=== PATIENT | female | born 1960 | race Caucasian/White ===

== ENCOUNTER 2018-09-30 08:57 | Day surgery (SDC) | payer BC ==
[~2018-09-30 08:57] MED LIST: Bupivacaine 0.25%/EPINEPHrine 1:200,000 10 ML SDV INJECT ONE; Bupivacaine 0.25%/EPINEPHrine 1:200,000 10 ML SDV ONE; Clindamycin Phosphate in D5W 600 MG in Premix Bag 1 BAG IV ONE; Lactated Ringers 1,000 ML IV SCH; Lidocaine 2% 5 ML SDV ONE; Midazolam 1 MG/ML 2 ML SDV ONE; Propofol 200 MG/20 ML SDV ONE; fentaNYL 100 MCG/2 ML SDV ONE
--- NOTE | 2018-09-30 10:16 | PCM.PREANE ---
Preanesthetic Assessment - Procedure Proposed Procedure: Excision of Synovial Cyst of LEFT Ring finger DIP - Anesthesia/Transfusion/Family Hx Anesthesia History: Prior Anesthesia Without Reaction Family History of Anesthesia Reaction: No Transfusion History: No Prior Transfusion(s) - Review of Systems General: No Symptoms Pulmonary: No Symptoms Cardiovascular: No Symptoms Gastrointestinal: No Symptoms Neurological: No Symptoms Other: Reports: None - Physical Assessment NPO Status Date: 09/29/18 NPO Status Time: 00:00 O2 Sat by Pulse Oximetry: 96 Respiratory Rate: 16 Vital Signs: Last Vital Signs Temp 36.5 C 09/30/18 09:35 Pulse 73 09/30/18 09:35 Resp 16 09/30/18 09:35 BP 127/66 09/30/18 09:35 Pulse Ox 96 09/30/18 09:35 Height: 1.63 m Weight: 94.347 kg ASA Class: 2 Mental Status: Alert & Oriented x3 Airway Class: Mallampati = 2 Dentition: Reports: Normal Dentition Thyro-Mental Finger Breadths: 3 Mouth Opening Finger Breadths: 3 ROM/Head Extension: Full Lungs: Clear to Auscultation, Normal Respiratory Effort Cardiovascular: Regular Rate, Regular Rhythm, No Murmurs (Pt reports intermittent murmur in the past) - Allergies Allergies/Adverse Reactions: Allergies Allergy/AdvReac Type Severity Reaction Status Date / Time amoxicillin [From Augmentin] Allergy Rash Verified 09/26/18 14:01 cephalexin monohydrate Allergy Rash Verified 09/26/18 14:01 [From Keflex] clavulanic acid Allergy Rash Verified 09/26/18 14:01 [From Augmentin] estrogens, conjugated Allergy Rash Verified 09/26/18 14:01 [From Premarin] Milk Containing Products Allergy Rash Verified 09/26/18 14:01 wheat germ oil Allergy Rash Uncoded 09/26/18 14:01 - Blood Blood Available: No - Acknowledgements Anesthesia Type Planned: MAC Pt an Appropriate Candidate for the Planned Anesthesia: Yes Alternatives and Risks of Anesthesia Discussed w Pt/Guardian: Yes Pt/Guardian Understands and Agrees with Anesthesia Plan: Yes PreAnesthesia Questionnaire HEENT History: Reports: Allergic Rhinitis, Other (See Below) Other HEENT History: wears glasses Cardiovascular History: Reports: Heart Murmur Respiratory History: Reports: Asthma Other Respiratory History: allergy induced asthma Gastrointestinal History: Reports: GERD Genitourinary History: Reports: None WEBBING TACKER History: Reports: Musculoskeletal History: Reports: Fracture, Osteoarthritis Other Musculoskeletal History: hx fx wrist Neurological History: Reports: Migraines, Other (See Below) Other Neuro History: hormone related migraines Psychiatric History: Reports: Anxiety, Depression Endocrine/Metabolic History: Reports: Diabetes, Type II, Obesity/BMI 30+ Hematologic History: Reports: None Immunologic History: Reports: None Oncologic (Cancer) History: Reports: None Dermatologic History: Reports: None - Past Surgical History Head Surgeries/Procedures: Reports: None HEENT Surgical History: Reports: Tonsillectomy Cardiovascular Surgical History: Reports: None GI Surgical History: Reports: Appendectomy, Cholecystectomy Female Surgical History: Reports: Breast Biopsy, Hysterectomy, Other (See Below) Other Female Surgeries/Procedures: vaginal surgery for prolapse Endocrine Surgical History: Reports: None Neurological Surgical History: Reports: Lumbar Spine Other Neurological Surgeries/Procedures: hx back surgery x3 Musculoskeletal Surgical History: Reports: Knee Replacement Other Musculoskeletal Surgeries/Procedures:: danish knee replacement, surgery to big toe-rt foot Oncologic Surgical History: Reports: Biopsy of Breast Dermatological Surgical History: Reports: None - SUBSTANCE USE Smoking Status *Q: Never Smoker Recreational Drug Use History: No - HOME MEDS Home Medications: Home Meds Calcium Carb/D3/Magnesium/Zinc [[place]-Dfs-Bbdg-Vit D] 1 tab PO DAILY 09/26/18 [History] Canagliflozin/Metformin HCl [Invokamet 150-500 mg Tablet] 1 tab PO DAILY [History] Cholecalciferol (Vitamin D3) [Vitamin D3] 3,000 units PO DAILY 09/26/18 [History ] Cyanocobalamin (Vitamin B12) [Vitamin B12] 1,000 mcg PO DAILY 09/26/18 [History] Docusate Sodium [Colace] 100 mg PO DAILY 09/26/18 [History] Famotidine 20 mg PO DAILY 09/26/18 [History] Venlafaxine HCl [Venlafaxine HCl ER] 225 mg PO DAILY 09/26/18 [History] clonazePAM [Klonopin] 1 mg PO DAILY 09/26/18 [History] - CURRENT (IN HOUSE) MEDS Current Meds: Current Medications Lactated Ringer's (Ringers, Lactated) 1,000 mls @ 125 mls/hr IV ASDIRECTED MONIKA Last Admin: 09/30/18 09:54 Dose: 125 mls/hr Discontinued Medications Bupivacaine HCl/Epinephrine Bitart (Marcaine 0.25%/Epinephrine 1:200,000) 10 ml INJECT ONETIME ONE Stop: 09/30/18 08:01 Bupivacaine HCl/Epinephrine Bitart (Marcaine 0.25%/Epinephrine 1:200,000) Confirm Administered Dose 10 ml .ROUTE .STK-MED ONE Stop: 09/30/18 07:35 Fentanyl (Sublimaze) Confirm Administered Dose 100 mcg .ROUTE .STK-MED ONE Stop: 09/30/18 08:40 Clindamycin Phosphate 600 mg/ (Premix) 50 mls @ 150 mls/hr IV ONETIME ONE Stop: 09/30/18 08:19 Last Admin: 09/30/18 09:55 Dose: 150 mls/hr Lidocaine (Xylocaine-Mpf 2%) Confirm Administered Dose 5 ml .ROUTE .STK-MED ONE Stop: 09/30/18 08:40 Midazolam HCl (Versed 1 Mg/Ml) Confirm Administered Dose 2 mg .ROUTE .STK-MED ONE Stop: 09/30/18 08:40 Propofol (Diprivan 20 Ml) Confirm Administered Dose 200 mg .ROUTE .STK-MED ONE Stop: 09/30/18 08:40
[2018-09-30] MEDS ORDERED: Ondansetron 4 MG/2 ML SDV ONE (10:51)
--- NOTE | 2018-09-30 11:54 | PCM.POSTAN ---
POST ANESTHESIA ASSESSMENT - MENTAL STATUS Mental Status: Alert, Oriented - RESPIRATORY Respiratory Status: Respiratory Rate WNL, Airway Patent, O2 Saturation Stable - CARDIOVASCULAR CV Status: Pulse Rate WNL, Blood Pressure Stable - GASTROINTESTINAL GI Status: No Symptoms - POST OP HYDRATION Hydration Status: Adequate & Stable
--- NOTE | 2018-09-30 11:54 | PCM48HPAN ---
Post Anesthesia Note - EVALUATION WITHIN 48HRS OF ANESTHETIC Vital Signs in Normal Range: Yes Patient Participated in Evaluation: Yes Respiratory Function Stable: Yes Airway Patent: Yes Cardiovascular Function Stable: Yes Hydration Status Stable: Yes Pain Control Satisfactory: Yes Nausea and Vomiting Control Satisfactory: Yes Mental Status Recovered: Yes Resp Rate: 16
--- NOTE | 2018-09-30 15:46 | PCM.OPNOTE ---
- General Post-Op/Procedure Note Date of Surgery/Procedure: 09/30/18 Operative Procedure(s): 1. excision of left ring finger ganglion. 2. destruction of refractory wart left index finger Pre Op Diagnosis: left ring finger dip joint ganglion and left index finger refractory wart Post-Op Diagnosis: Same Anesthesia Technique: Local, MAC Primary Surgeon: Glenys Valles Biological Technician: Renu Buck Complications: None Condition: Good
--- NOTE | 2018-10-02 14:27 | OR ---
SURGEON: FRANCIS TAYLOR MD DATE OF PROCEDURE: 09/30/2018 PREOPERATIVE DIAGNOSES: 1. Left ring finger distal interphalangeal joint ganglion. 2. Left index finger refractory wart. FEED MILL OPERATOR: EPIFANIO Jones. REASON FOR AND ROLE OF FEED MILL OPERATOR: Retraction, prepping, draping, positioning and closure assistance. ANESTHESIA: Local MAC. PROCEDURED: 1. Excision of left ring finger ganglion. 2. Destruction of the refractory wart, left index finger. INDICATIONS: Ms. Issa is a 58-year-old female seen today in evaluation for her left ring finger ganglion. She also had attempted destruction of a wart to the left index finger, which has not resulted in resolution. We discussed cauterization and closure today. She would like to proceed. PROCEDURE IN DETAIL: After informed consent was obtained and placed on the chart, the patient was brought to the operating theater and laid in the supine position. After MAC anesthesia was obtained, the area was prepped and draped in the normal fashion and a time-out was completed to confirm side and site. 0.25% Marcaine with epinephrine was injected into the area. Once adequately anesthetized, attention was then paid to excision of the left ring finger ganglion. An H-type incision was made involving the ganglion and skin with an ellipse. Dissection was carried circumferentially around the ganglion itself and then through the extensor tendon to trace the ganglion back to the joint. Once located, the joint communication was removed and the joint surface was rongeured to remove the joint mouse and significant osteoarthritis here. Once adequately rongeured, the area was irrigated and reapproximated with a single stitch in the extensor tendon that was split and the skin was then reapproximated, trimmed to fit, and closed using a 5-0 chromic stitch in an interrupted fashion. It was dressed with a Band-Aid. Once adequately treated, attention was then paid to the refractory wart of the left index finger, which was excised with a 15 blade and cauterized. Once completed, a single 5-0 chromic stitch was used to close the 0.4 cm wound on the left index finger. Once adequately closed, it was dressed with a Band-Aid as well. The patient tolerated this well and all counts and needles were correct at the end of the case. FOLLOWUP INSTRUCTIONS: The patient will see us in approximately 2 weeks, sooner with any problems, questions, or concerns. Wound care instructions provided. She was given some pain pills that she needed for the ring finger. HEGGTHE / CISCO /[id number]
== END 2018-09-30 12:00 | disposition home or self-care (01) ==
LOC: MW.SDS 08:57
PROVIDERS: ATTEND Plastic Surgery
DX: M67.442 Ganglion, left hand (principal); E11.9 Type 2 diabetes mellitus without complications; F41.9 Anxiety disorder, unspecified; F32.9 Major depressive disorder, single episode, unspecified; M19.90 Unspecified osteoarthritis, unspecified site; Z91.011 Allergy to milk products; Z88.0 Allergy status to penicillin; Z88.8 Allergy status to other drugs, medicaments and biological substances; Z91.02 Food additives allergy status; Z79.84 Long term (current) use of oral hypoglycemic drugs; Z79.899 Other long term (current) drug therapy
CPT/HCPCS: 17110; 26160; 88304; J0131; J2001; J2250; J2405; J2704; J3010; J3490; J7120; 00400

== ENCOUNTER 2020-07-19 13:33 | Observation (INO) | payer BC ==
--- NOTE | 2020-07-19 14:26 | EDM.PDOC ---
ED HPI GENERAL MEDICAL PROBLEM - General Chief Complaint: Head Injury Stated Complaint: FELL AND HIT HEAD DIZZY Time Seen by Provider: 07/19/20 13:55 Source of Information: Reports: Patient History Limitations: Reports: No Limitations - History of Present Illness INITIAL COMMENTS - FREE TEXT/NARRATIVE: HISTORY AND PHYSICAL: History of present illness: Patient is a 60-year-old female who presents to the emergency room with complaints of posterior scalp pain after a fall. She states she was getting out of the car and started sliding on the ice when she fell backwards striking her head on the cement ground. She denies any loss of consciousness although she has been dizzy, nauseated and headache over the past 2 hours. She denies any neck, back or extremity pain. Patient denies any fever, chills or change in vision. Denies any numbness, tingling, paresthesia, urinary or fecal incontinence. Denies any chest pain, back pain, shortness of breath or cough. Denies any abdominal pain, vomiting, diarrhea, constipation or dysuria. No concern for . Has not noted any blood in urine or stool. Patient has been eating and drinking appropriately. Review of systems: As per history of present illness and below otherwise all systems reviewed and negative. Past medical history: As per history of present illness and as reviewed below otherwise noncontributory. Surgical history: As per history of present illness and as reviewed below otherwise noncontributory. Social history: See social history for further information Family history: As per history of present illness and as reviewed below otherwise noncontributory. Physical exam: General: Well developed and well nourished. Alert and orientated x 3. Nontoxic in appearance and in no acute distress. Vital signs are stable and have been reviewed by me. Nursing notes were reviewed. HEENT: Mild tenderness to the occiput/posterior scalp, no crepitus. No obvious injury is noted, normocephalic, pupils equal and reactive bilaterally, negative for conjunctival pallor or scleral icterus, mucous membranes moist, TMs normal bilaterally, throat clear, neck supple, nontender, trachea midline. No drooling or trismus noted. No meningeal signs. No hot potato voice noted. Lungs: Clear to auscultation bilaterally. No wheezes, rales, or rhonchi. Chest nontender. Normal work of breathing, no accessory muscles used. Heart: S1S2, regular rate and rhythm without overt murmur, gallops, or rubs. No JVD. No peripheral edema Abdomen: Soft, nondistended, nontender. Normoactive bowel sounds. Negative for masses or costovertebral tenderness. Pelvis: Stable nontender. Genitourinary/Rectal: Deferred. C-spine/Back: No pinpoint vertebral tenderness upon palpation. No crepitus, step-offs or obvious deformities. Patient is ambulatory into the emergency room without difficulty or deficit. Able to rock back on heels and walk on toes. Denies any urinary or fecal incontinence. Denies any numbness, tingling or sadd le paresthesia. No concerns of serious infection, fracture or cord compression, or cauda equina syndrome. Deep tendon reflexes brisk bilaterally. Skin: Intact, warm, dry. No lesions or rashes noted. Hematologic: No petechiae or purpra. Mucosa appropriate color and normal nail bed color and refill. Extremities: Atraumatic, moves all extremities per self without difficulty or deficits, negative for cords or calf pain. Neurovascular unremarkable. Neuro: Awake, alert, oriented. Cranial nerves II through XII unremarkable. Cerebellum unremarkable. Motor and sensory unremarkable throughout. Exam nonf ocal. Psychiatric: Mood and affect are appropriate. Normal thought process. Answering questions appropriately. Notes: *This patient was seen and evaluated during the 2019 SARS-CoV-2 novel coronaviru s pandemic period. Community viral transmission is ongoing at time of this encounter and the emergency department is operating under pandemic response procedures. GCS: 15. We discussed risks versus benefits of a head CT, she would like to proceed with the head CT. CT shows a thin asymmetric hyperdensity along the right tentorium compared to left may represent a tiny subdural hematoma. No surrounding mass effect. No acute infarct. No intracranial hemorrhage elsewhere. No midline shift. Basilar cisterns are patent. Normal brain parenchymal morphology. I called the neurosurgeon at [facility] in [place], Dr Carpenter, who recommends that this patient stay for observation and no further intervention is needed as long as her blood pressure remained stable and she is still neurologically intact. Patient was made aware of her CT findings and she is agreeable to staying for observation. Dr Wilson is here to see patient. Will admit for observation for further care and imaging. Diagnostics: Head CT Therapeutics: Leobardo Impression: Subdural hematoma Plan: Observation admission to Med/Surg Definitive disposition and diagnosis as appropriate pending reevaluation and review of above. headache Pain Score (Numeric/FACES): 7 - Related Data Allergies Allergy/AdvReac Type Severity Reaction Status Date / Time amoxicillin [From Augmentin] Allergy Rash Verified 07/19/20 14:18 cephalexin monohydrate Allergy Rash Verified 07/19/20 14:18 [From Keflex] clavulanic acid Allergy Rash Verified 07/19/20 14:18 [From Augmentin] estrogens, conjugated Allergy Rash Verified 07/19/20 14:18 [From Premarin] Milk Containing Products Allergy Rash Verified 07/19/20 14:18 wheat germ oil Allergy Rash Uncoded 07/19/20 14:18 Home Meds: Home Meds Calcium Carb/D3/Magnesium/Zinc [Enkfsgx-Bij-Dffo-Vit D] 1 tab PO DAILY 09/26/18 [History] Modafinil [Provigil] 100 mg PO DAILY 07/19/20 [History] Multivitamin 1 tab PO DAILY 07/19/20 [History] [place]-3 Fatty Acids [[place]-3] 1 tab PO DAILY 07/19/20 [History] Vortioxetine Hydrobromide [Trintellix] 20 mg PO DAILY 07/19/20 [History] Past Medical History HEENT History: Reports: Allergic Rhinitis, Other (See Below) Other HEENT History: wears glasses Cardiovascular History: Reports: Heart Murmur Respiratory History: Reports: Asthma Other Respiratory History: allergy induced asthma Gastrointestinal History: Reports: GERD Genitourinary History: Reports: None HYDROTHERAPIST History: Reports: Musculoskeletal History: Reports: Fracture, Osteoarthritis Other Musculoskeletal History: hx fx wrist Neurological History: Reports: Migraines, Other (See Below) Other Neuro History: hormone related migraines Psychiatric History: Reports: Anxiety, Depression Endocrine/Metabolic History: Reports: Diabetes, Type II, Obesity/BMI 30+ Hematologic History: Reports: None Immunologic History: Reports: None Oncologic (Cancer) History: Reports: None Dermatologic History: Reports: None - Past Surgical History Head Surgeries/Procedures: Reports: None HEENT Surgical History: Reports: Tonsillectomy Cardiovascular Surgical History: Reports: None GI Surgical History: Reports: Appendectomy, Cholecystectomy Female Surgical History: Reports: Breast Biopsy, Hysterectomy, Other (See Below) Other Female Surgeries/Procedures: vaginal surgery for prolapse Endocrine Surgical History: Reports: None Neurological Surgical History: Reports: Lumbar Spine Other Neurological Surgeries/Procedures: hx back surgery x3 Musculoskeletal Surgical History: Reports: Knee Replacement Other Musculoskeletal Surgeries/Procedures:: danish knee replacement, surgery to big toe-rt foot Oncologic Surgical History: Reports: Biopsy of Breast Dermatological Surgical History: Reports: None ED ROS GENERAL - Review of Systems Review Of Systems: Comprehensive ROS is negative, except as noted in HPI. ED EXAM, HEAD INJURY - Physical Exam Exam: See Below (See dictation) Course - Vital Signs Last Recorded V/S: Last Vital Signs Temp 97.6 F 07/19/20 14:15 Pulse 86 07/19/20 15:30 Resp 18 07/19/20 15:30 BP 115/78 07/19/20 15:30 Pulse Ox 95 07/19/20 15:30 - Orders/Labs/Meds Orders: Active Orders 24 hr Category Date Time Status Patient Status [ADT] Routine ADT 07/19/20 16:07 Active Intake and Output [RC] QSHIFT Care 07/19/20 16:07 Active Oxygen Therapy [RC] PRN Care 07/19/20 16:07 Active RT Incentive Spirometry [RC] Q1HWA Care 07/19/20 16:07 Active Up ad Hawa [RC] ASDIRECTED Care 07/19/20 16:07 Active Vital Signs [RC] PER UNIT ROUTINE Care 07/19/20 16:07 Active Regular Diet [DIET] Diet 07/19/20 Dinner Active COMPREHENSIVE METABOLIC PN,CMP [CHEM] Stat Lab 07/19/20 15:50 Received CORONAVIRUS COVID-19 JUNG [MOLEC] Routine Lab 07/19/20 15:58 Received Acetaminophen [TylenoL] Med 07/19/20 16:07 Active 650 mg PO Q6H PRN Ketorolac [Toradol] Med 07/19/20 16:15 Active 15 mg IVPUSH Q6H Ondansetron [Zofran] Med 07/19/20 16:07 Active 4 mg IVPUSH Q6H PRN Sodium Chloride 0.9% [Normal Saline] Med 07/19/20 16:07 Active 10 ml IV ASDIRECTED PRN Sodium Chloride 0.9% [Normal Saline] 1,000 ml Med 07/19/20 16:15 Active IV ASDIRECTED Sodium Chloride 0.9% [Saline Flush] Med 07/19/20 15:35 Active 10 ml FLUSH ASDIRECTED PRN Sodium Chloride 0.9% [Saline Flush] Med 07/19/20 16:07 Active 10 ml FLUSH ASDIRECTED PRN Sodium Chloride 0.9% [Saline Flush] Med 07/19/20 15:35 Active 2.5 ml FLUSH ASDIRECTED PRN Sodium Chloride 0.9% [Saline Flush] Med 07/19/20 16:07 Active 2.5 ml FLUSH ASDIRECTED PRN diphenhydrAMINE [Benadryl] Med 07/19/20 16:07 Active 25 mg PO Q4H PRN Peripheral IV Insertion Adult [OM.PC] Urgent Oth 07/19/20 16:07 Ordered Saline Lock Insert [OM.PC] Stat Ot 07/19/20 15:35 Ordered Resuscitation Status Routine Resus Stat 07/19/20 16:07 Ordered Medication Orders Acetaminophen (Tylenol) 650 mg PO Q6H PRN PRN Reason: Pain (mild 1-3) Diphenhydramine HCl (Benadryl) 25 mg PO Q4H PRN PRN Reason: Itching Sodium Chloride (Normal Saline) 1,000 mls @ 100 mls/hr IV ASDIRECTED [facility] Last Admin: 07/19/20 16:18 Dose: 100 mls/hr Documented by: DENVER Ketorolac Tromethamine (Toradol) 15 mg IVPUSH Q6H [facility] Stop: 07/20/20 10:16 Last Admin: 07/19/20 16:20 Dose: 15 mg Documented by: DENVER Ondansetron HCl (Zofran) 4 mg IVPUSH Q6H PRN PRN Reason: Nausea/Vomiting Sodium Chloride (Saline Flush) 10 ml FLUSH ASDIRECTED PRN PRN Reason: Keep Vein Open Last Admin: 07/19/20 15:51 Dose: 10 ml Documented by: DENVER Sodium Chloride (Saline Flush) 2.5 ml FLUSH ASDIRECTED PRN PRN Reason: Keep Vein Open Last Admin: 07/19/20 15:51 Dose: 2.5 ml Documented by: DENVER Sodium Chloride (Saline Flush) 10 ml FLUSH ASDIRECTED PRN PRN Reason: Keep Vein Open Sodium Chloride (Saline Flush) 2.5 ml FLUSH ASDIRECTED PRN PRN Reason: Keep Vein Open Sodium Chloride (Normal Saline) 10 ml IV ASDIRECTED PRN PRN Reason: IV Use Labs: Laboratory Tests 07/19/20 07/19/20 Range/Units 15:45 15:50 WBC 8.16 (4.0-11.0) K/uL RBC 5.09 (4.30-5.90) M/uL Hgb 15.0 (12.0-16.0) g/dL Hct 46.5 H (36.0-46.0) % MCV 91.4 (80.0-98.0) fL MCH 29.5 (27.0-32.0) pg MCHC 32.3 (31.0-37.0) g/dL RDW Std Deviation 47.7 (28.0-62.0) fl RDW Coeff of Rupal 14 (11.0-15.0) % Plt Count 257 (150-400) K/uL MPV 11.80 (7.40-12.00) fL Neut % (Auto) 52.6 (48.0-80.0) % Lymph % (Auto) 34.6 (16.0-40.0) % Morris % (Auto) 10.3 (0.0-15.0) % Eos % (Auto) 2.3 (0.0-7.0) % Baso % (Auto) 0.2 (0.0-1.5) % Neut # (Auto) 4.3 (1.4-5.7) K/uL Lymph # (Auto) 2.8 H (0.6-2.4) K/uL Morris # (Auto) 0.8 (0.0-0.8) K/uL Eos # (Auto) 0.2 (0.0-0.7) K/uL Baso # (Auto) 0.0 (0.0-0.1) K/uL Nucleated RBC % 0.0 /100WBC Nucleated RBCs # 0 K/uL Urine Color YELLOW Urine Appearance CLEAR Urine pH 5.5 (5.0-8.0) Ur Specific [place] >= 1.030 (1.001-1.035) Urine Protein NEGATIVE (NEGATIVE) mg/dL Urine Glucose (UA) 100 H (NEGATIVE) mg/dL Urine Ketones TRACE H (NEGATIVE) mg/dL Urine Occult Blood NEGATIVE (NEGATIVE) Urine Nitrite NEGATIVE (NEGATIVE) Urine Bilirubin NEGATIVE (NEGATIVE) Urine Urobilinogen 0.2 (<2.0) EU/dL Ur Leukocyte Esterase NEGATIVE (NEGATIVE) Meds: Medications Generic Name Dose Route Start Last Admin Trade Name Laloq PRN Reason Stop Dose Admin Acetaminophen 650 mg 07/19/20 16:07 Tylenol PO Q6H PRN Pain (mild 1-3) Diphenhydramine HCl 25 mg 07/19/20 16:07 Benadryl PO Q4H PRN Itching Sodium Chloride 1,000 mls @ 100 mls/hr 07/19/20 16:15 07/19/20 16:18 Normal Saline IV 100 mls/hr ASDIRECTED MONIKA Administration Ketorolac Tromethamine 15 mg 07/19/20 16:15 07/19/20 16:20 Toradol IVPUSH 07/20/20 10:16 15 mg Q6H MONIKA Administration Ondansetron HCl 4 mg 07/19/20 16:07 Zofran IVPUSH Q6H PRN Nausea/Vomiting Sodium Chloride 10 ml 07/19/20 15:35 07/19/20 15:51 Saline Flush FLUSH 10 ml ASDIRECTED PRN Administration Keep Vein Open Sodium Chloride 2.5 ml 07/19/20 15:35 07/19/20 15:51 Saline Flush FLUSH 2.5 ml ASDIRECTED PRN Administration Keep Vein Open Sodium Chloride 10 ml 07/19/20 16:07 Saline Flush FLUSH ASDIRECTED PRN Keep Vein Open Sodium Chloride 2.5 ml 07/19/20 16:07 Saline Flush FLUSH ASDIRECTED PRN Keep Vein Open Sodium Chloride 10 ml 07/19/20 16:07 Normal Saline IV ASDIRECTED PRN IV Use Discontinued Medications Generic Name Dose Route Start Last Admin Trade Name Freq PRN Reason Stop Dose Admin Ondansetron HCl 4 mg 07/19/20 14:30 Zofran IVPUSH 07/19/20 14:31 ONETIME ONE Ondansetron HCl 4 mg 07/19/20 14:30 07/19/20 14:49 Zofran Odt PO 07/19/20 14:31 4 mg ONETIME ONE Administration Departure - Departure Time of Disposition: 15:42 Disposition: Refer to Observation Clinical Impression: Subdural hematoma - Discharge Information Referrals: Micah Drake NP [Primary Care Provider] - Forms: ED Department Discharge Sepsis Event Note (ED) - Focused Exam Vital Signs: Vital Signs Temp Pulse Resp BP Pulse Ox 07/19/20 15:30 86 18 115/78 95 07/19/20 14:15 97.6 F 83 16 179/75 H 97 - My Orders Last 24 Hours: My Active Orders 07/19/20 15:35 Sodium Chloride 0.9% [Saline Flush] 10 ml FLUSH ASDIRECTED PRN Sodium Chloride 0.9% [Saline Flush] 2.5 ml FLUSH ASDIRECTED PRN Saline Lock Insert [OM.PC] Stat 07/19/20 15:50 COMPREHENSIVE METABOLIC PN,CMP [CHEM] Stat 07/19/20 15:58 CORONAVIRUS COVID-19 JUNG [MOLEC] Routine - Assessment/Plan Last 24 Hours: My Active Orders 07/19/20 15:35 Sodium Chloride 0.9% [Saline Flush] 10 ml FLUSH ASDIRECTED PRN Sodium Chloride 0.9% [Saline Flush] 2.5 ml FLUSH ASDIRECTED PRN Saline Lock Insert [OM.PC] Stat 07/19/20 15:50 COMPREHENSIVE METABOLIC PN,CMP [CHEM] Stat 07/19/20 15:58 CORONAVIRUS COVID-19 JUNG [MOLEC] Routine
[2020-07-19] MEDS ORDERED: Ondansetron 4 MG Tab.DIS PO ONE (14:30)
[2020-07-19] MEDS ORDERED: Ondansetron 4 MG/2 ML SDV IVPUSH ONE (14:30)
--- NOTE | 2020-07-19 15:16 | CT ---
INDICATION: Head pain. Dizziness. Falls. COMPARISON: None. TECHNIQUE: Noncontrast CT head. FINDINGS: Normal brain parenchymal morphology. Thin asymmetric hyperdensity along the right tentorium compared to the left measuring less than 2 millimeters in thickness (axial image 14; coronal image 67) may represent a small subdural hematoma. No intracranial hemorrhage elsewhere. No acute infarct. No focal edema. No mass effect. No midline shift. No abnormal ventricular dilatation. Normal calvarium and skull base. Visualized paranasal sinuses and mastoid air cells are clear. Visualized orbits are unremarkable. IMPRESSION: 1. Thin asymmetric hyperdensity along the right tentorium compared to left may represent a tiny subdural hematoma. No surrounding mass effect 2. No acute infarct. No intracranial hemorrhage elsewhere. 3. No midline shift. Basilar cisterns are patent. 4. Normal brain parenchymal morphology. Please note that all CT scans at this facility use dose modulation, iterative reconstruction, and/or weight-based dosing when appropriate to reduce radiation dose to as low as reasonably achievable. Dictated by Catrachito Guthrie MD @ Jul 19 2020 3:11PM Signed by Dr. Catrachito Guthrie @ Jul 19 2020 3:14PM
[2020-07-19] MEDS ORDERED: Sodium Chloride 0.9% 10 ML Syringe FLUSH PRN ×2 (15:35→16:07)
[2020-07-19] MEDS ORDERED: Sodium Chloride 0.9% 2.5 ML Syringe FLUSH PRN ×2 (15:35→16:07)
[2020-07-19] MEDS ORDERED: Acetaminophen 325 MG Tab PO PRN (16:07)
[2020-07-19] MEDS ORDERED: Sodium Chloride 0.9% 10 ML SDV IV PRN (16:07)
[2020-07-19] MEDS ORDERED: Ondansetron 4 MG/2 ML SDV IVPUSH PRN (16:07)
[2020-07-19] MEDS ORDERED: diphenhydrAMINE 25 MG Cap PO PRN (16:07)
--- NOTE | 2020-07-19 16:10 | PCM.HP.2 ---
H&P History of Present Illness - General Date of Service: 07/19/20 Admit Problem/Dx: Admission Diagnosis/Problem Admission Diagnosis/Problem Subdural hematoma Source of Information: Patient History Limitations: Reports: No Limitations - History of Present Illness Initial Comments - Free Text/Narative: Patient is a 60 year old female who presents to the ER after a fall this afternoon. She was walking on ice when she slipped and fell backwards. She struck the back of her head on the ice. She did not loose conciousness but felt "dazed." Afterwards she felt sluggish and nauseated. She decided to come to the ER for evaluation. She denies any pain anywhere but the back of her head in the midline where she hit down. She denies any cuts or lacerations. She denies any vision changes, loss of motor function, or paresthesias. She is alert and oriented x 4. She denies any SOB, chest pain, or vomiting. She was given zofran in the ER with good resolution of her nausea. Her vitals were stable on arrival. Her labs were normal. CT head showed a questionable thin asymmetric density on the right tentorium. There was a question of a subdural. The ER consulted an OSH neurosurgeon who agreed that the patient should be monitored overnight. She has had no change in neurologic status since admission. headache Pain Score (Numeric/FACES): 7 - Related Data Allergies/Adverse Reactions: Allergies Allergy/AdvReac Type Severity Reaction Status Date / Time amoxicillin [From Augmentin] Allergy Rash Verified 07/19/20 14:18 cephalexin monohydrate Allergy Rash Verified 07/19/20 14:18 [From Keflex] clavulanic acid Allergy Rash Verified 07/19/20 14:18 [From Augmentin] estrogens, conjugated Allergy Rash Verified 07/19/20 14:18 [From Premarin] Milk Containing Products Allergy Rash Verified 07/19/20 14:18 wheat germ oil Allergy Rash Uncoded 07/19/20 14:18 Home Medications: Home Meds Calcium Carb/D3/Magnesium/Zinc [Wywmzyn-Efi-Vpiz-Vit D] 1 tab PO DAILY 09/26/18 [History] Modafinil [Provigil] 100 mg PO DAILY 07/19/20 [History] Multivitamin 1 tab PO DAILY 07/19/20 [History] Steedman-3 Fatty Acids [Steedman-3] 1 tab PO DAILY 07/19/20 [History] Vortioxetine Hydrobromide [Trintellix] 20 mg PO DAILY 07/19/20 [History] Past Medical History HEENT History: Reports: Allergic Rhinitis, Other (See Below) Other HEENT History: wears glasses Cardiovascular History: Reports: Heart Murmur Respiratory History: Reports: Asthma Other Respiratory History: allergy induced asthma Gastrointestinal History: Reports: GERD Genitourinary History: Reports: None 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: Musculoskeletal History: Reports: Fracture, Osteoarthritis Other Musculoskeletal History: hx fx wrist Neurological History: Reports: Migraines, Other (See Below) Other Neuro History: hormone related migraines Psychiatric History: Reports: Anxiety, Depression Endocrine/Metabolic History: Reports: Diabetes, Type II, Obesity/BMI 30+ Hematologic History: Reports: None Immunologic History: Reports: None Oncologic (Cancer) History: Reports: None Dermatologic History: Reports: None - Infectious Disease History Infectious Disease History: Reports: Chicken Pox, Measles - Past Surgical History Head Surgeries/Procedures: Reports: None HEENT Surgical History: Reports: Tonsillectomy Cardiovascular Surgical History: Reports: None GI Surgical History: Reports: Appendectomy, Cholecystectomy Female Surgical History: Reports: Breast Biopsy, Hysterectomy, Other (See Below) Other Female Surgeries/Procedures: vaginal surgery for prolapse Endocrine Surgical History: Reports: None Neurological Surgical History: Reports: Lumbar Spine Other Neurological Surgeries/Procedures: hx back surgery x3 Musculoskeletal Surgical History: Reports: Knee Replacement Other Musculoskeletal Surgeries/Procedures:: danish knee replacement, surgery to big toe-rt foot Oncologic Surgical History: Reports: Biopsy of Breast Dermatological Surgical History: Reports: None Social & Family History - Family History Family Medical History: No Pertinent Family History - Tobacco Use Tobacco Use Status *Q: Never Tobacco User - Recreational Drug Use Recreational Drug Use: No H&P Review of Systems - Review of Systems: Review Of Systems: See Below General: Reports: No Symptoms HEENT: Reports: Other (pain at point of impact on occiput) Pulmonary: Reports: No Symptoms Cardiovascular: Reports: No Symptoms Gastrointestinal: Reports: No Symptoms Genitourinary: Reports: No Symptoms Musculoskeletal: Reports: No Symptoms Skin: Reports: No Symptoms Psychiatric: Reports: No Symptoms Neurological: Reports: No Symptoms Hematologic/Lymphatic: Reports: No Symptoms Immunologic: Reports: No Symptoms Exam - Exam Exam: See Below - Vital Signs Vital Signs: Last Vital Signs Temp 36.4 C 07/19/20 14:15 Pulse 86 07/19/20 15:30 Resp 18 07/19/20 15:30 BP 115/78 07/19/20 15:30 Pulse Ox 95 07/19/20 15:30 Weight: 104.326 kg - Exam General: Alert, Oriented HEENT: Conjunctiva Clear, EACs Clear, EOMI, Hearing Intact, Mucosa Moist & [place], Nares Patent, Normal Nasal Septum, Posterior Pharynx Clear, Pupils Equal, Pupils Reactive, Other (small bump on the posterior midline occiput ) Neck: Supple, Trachea Midline Lungs: Clear to Auscultation, Normal Respiratory Effort Cardiovascular: Regular Rate, Regular Rhythm GI/Abdominal Exam: Soft, Non-Tender, No Distention, No Mass Back Exam: Normal Inspection, Full Range of Motion Extremities: Normal Inspection, Normal Range of Motion, Non-Tender, No Pedal Edema, Normal Capillary Refill Skin: Warm, Dry, Intact Neurological: Cranial Nerves Intact, Reflexes Equal Bilateral Neuro Extensive - Mental Status: Alert, Oriented x3, Normal Mood/Affect, Normal Cognition, Memory Intact Neuro Extensive - Motor, Sensory, Reflexes: Normal Gait. No: Motor/Sensory Deficits DTR: 0: Achilles (R) Psychiatric: Alert, Normal Affect, Normal Mood - Patient Data Lab Results Last 24 hrs: Laboratory Results - last 24 hr 07/19/20 07/19/20 Range/Units 15:45 15:50 WBC 8.16 (4.0-11.0) K/uL RBC 5.09 (4.30-5.90) M/uL Hgb 15.0 (12.0-16.0) g/dL Hct 46.5 H (36.0-46.0) % MCV 91.4 (80.0-98.0) fL MCH 29.5 (27.0-32.0) pg MCHC 32.3 (31.0-37.0) g/dL RDW Std Deviation 47.7 (28.0-62.0) fl RDW Coeff of Rupal 14 (11.0-15.0) % Plt Count 257 (150-400) K/uL MPV 11.80 (7.40-12.00) fL Neut % (Auto) 52.6 (48.0-80.0) % Lymph % (Auto) 34.6 (16.0-40.0) % [place] % (Auto) 10.3 (0.0-15.0) % Eos % (Auto) 2.3 (0.0-7.0) % Baso % (Auto) 0.2 (0.0-1.5) % Neut # (Auto) 4.3 (1.4-5.7) K/uL Lymph # (Auto) 2.8 H (0.6-2.4) K/uL [place] # (Auto) 0.8 (0.0-0.8) K/uL Eos # (Auto) 0.2 (0.0-0.7) K/uL Baso # (Auto) 0.0 (0.0-0.1) K/uL Nucleated RBC % 0.0 /100WBC Nucleated RBCs # 0 K/uL Urine Color YELLOW Urine Appearance CLEAR Urine pH 5.5 (5.0-8.0) Ur Specific [place] >= 1.030 (1.001-1.035) Urine Protein NEGATIVE (NEGATIVE) mg/dL Urine Glucose (UA) 100 H (NEGATIVE) mg/dL Urine Ketones TRACE H (NEGATIVE) mg/dL Urine Occult Blood NEGATIVE (NEGATIVE) Urine Nitrite NEGATIVE (NEGATIVE) Urine Bilirubin NEGATIVE (NEGATIVE) Urine Urobilinogen 0.2 (<2.0) EU/dL Ur Leukocyte Esterase NEGATIVE (NEGATIVE) Result Diagrams: 07/19/20 15:50 07/19/20 15:50 Sepsis Event Note - Evaluation Sepsis Screening Result: No Definite Risk - Focused Exam Vital Signs: Vital Signs Temp Pulse Resp BP Pulse Ox 07/19/20 15:30 86 18 115/78 95 07/19/20 14:15 36.4 C 83 16 179/75 H 97 - Problem List (1) TBI (traumatic brain injury) SNOMED Code(s): 626273244 ICD Code: S06.9X9A - UNSP INTRACRANIAL INJURY W LOC OF UNSP DURATION, INIT Status: Acute Current Visit: Yes Problem List Initiated/Reviewed/Updated: Yes Orders Last 24hrs: Active Orders 24 hr Category Date Time Status Patient Status [ADT] Routine ADT 07/19/20 16:07 Ordered Intake and Output [RC] QSHIFT Care 07/19/20 16:07 Ordered Oxygen Therapy [RC] PRN Care 07/19/20 16:07 Ordered RT Incentive Spirometry [RC] Q1HWA Care 07/19/20 16:07 Ordered Up ad [place] [RC] ASDIRECTED Care 07/19/20 16:07 Ordered Vital Signs [RC] PER UNIT ROUTINE Care 07/19/20 16:07 Ordered Regular Diet [DIET] Diet 07/19/20 Dinner Ordered COMPREHENSIVE METABOLIC PN,CMP [CHEM] Stat Lab 07/19/20 15:50 Received Acetaminophen [TylenoL] Med 07/19/20 16:07 Ordered 650 mg PO Q6H PRN Ketorolac [Toradol] Med 07/19/20 16:15 Ordered 15 mg IVPUSH Q6H Ondansetron [Zofran] Med 07/19/20 16:07 Ordered 4 mg IVPUSH Q6H PRN Sodium Chloride 0.9% [Normal Saline] Med 07/19/20 16:07 Ordered 10 ml IV ASDIRECTED PRN Sodium Chloride 0.9% [Normal Saline] 1,000 ml Med 07/19/20 16:15 Ordered IV ASDIRECTED Sodium Chloride 0.9% [Saline Flush] Med 07/19/20 15:35 Active 10 ml FLUSH ASDIRECTED PRN Sodium Chloride 0.9% [Saline Flush] Med 07/19/20 16:07 Ordered 10 ml FLUSH ASDIRECTED PRN Sodium Chloride 0.9% [Saline Flush] Med 07/19/20 15:35 Active 2.5 ml FLUSH ASDIRECTED PRN Sodium Chloride 0.9% [Saline Flush] Med 07/19/20 16:07 Ordered 2.5 ml FLUSH ASDIRECTED PRN diphenhydrAMINE [Benadryl] Med 07/19/20 16:07 Ordered 25 mg PO Q4H PRN Peripheral IV Insertion Adult [OM.PC] Urgent Oth 07/19/20 16:07 Ordered Saline Lock Insert [OM.PC] Stat Oth 07/19/20 15:35 Ordered Resuscitation Status Routine Resus Stat 07/19/20 16:07 Ordered Medication Orders Sodium Chloride (Saline Flush) 10 ml FLUSH ASDIRECTED PRN PRN Reason: Keep Vein Open Last Admin: 07/19/20 15:51 Dose: 10 ml Documented by: HANSMAC Sodium Chloride (Saline Flush) 2.5 ml FLUSH ASDIRECTED PRN PRN Reason: Keep Vein Open Last Admin: 07/19/20 15:51 Dose: 2.5 ml Documented by: [place] Assessment/Plan Comment:: Given the questionable subdural hematoma, will admit the patient overnight for c lose neurologic monitoring. Will perform q 2hr neuro checks. If any change in neurologic status will perform a repeat HCT. Will reassess in am. If stable, will discuss post TBI/concussion cares and possibly discharge home with family. Ok to eat a regular diet.
[2020-07-19] MEDS: Sodium Chloride 0.9% 1,000 ML IV SCH (16:18)
[2020-07-19] MEDS: Ketorolac 15 MG/ML SDV IVPUSH SCH ×2 (16:20→22:28)
[2020-07-19 16:34] LABS: BLOOD UREA NITROGEN,BUN 17 mg/dL (7.0-18.0); CHLORIDE,CL 103 mmol/L (98-107); GLUCOSE RANDOM 141 mg/dL (74-106); POTASSIUM,K 4.2 mmol/L (3.5-5.1); SODIUM,NA 139 mmol/L (136-145)
[2020-07-20] MEDS: Sodium Chloride 0.9% 1,000 ML IV SCH (01:47)
[2020-07-20] MEDS: Ketorolac 15 MG/ML SDV IVPUSH SCH ×2 (04:55→10:34)
[2020-07-20] MEDS ORDERED: FLU VAC QV 2020(18YR UP)RCM/PF 180 MCG/0.5 ML SYRINGE IM ONE (09:00)
--- NOTE | 2020-07-20 10:00 | PCM.DCSUM1 ---
Discharge Summary - Hospital Course Free Text/Narrative:: Patient is a 60-year-old female who fell today striking the back of her head. Patient had complaints of nausea and dizziness. She presented the emergency room. Head CT showed a questionable subdural hematoma along the right tentorium. The patient had no other signs of injury other than a swollen area along the midline occiput. Neurologic exams and vital signs were stable throughout her stay. The next morning the patient describes some paresthesias along the right posterior aspect of her scalp as well as some increased dizziness. Her nausea had resolved with Zofran. Repeat head CT showed no significant change. The patient was tolerating a diet and able to ambulate without assistance. She was discharged home. - Discharge Data Discharge Date: 07/20/20 Discharge Disposition: Home, Self-Care 01 Condition: Good - Referral to Home Health Primary Care Physician: Micah Drake NP - Discharge Diagnosis/Problem(s) (1) TBI (traumatic brain injury) SNOMED Code(s): 222072116 ICD Code: S06.9X9A - UNSP INTRACRANIAL INJURY W LOC OF UNSP DURATION, INIT Status: Acute Qualifiers: Encounter type: initial encounter Loss of consciousness presence/duration: without LOC Qualified Code(s): S06.9X0A - Unspecified intracranial injury without loss of consciousness, initial encounter - Patient Instructions Diet: Regular Diet as Tolerated Activity: No Strenuous Activities, Rest and Relax Today Driving: Do Not Drive Showering/Bathing: May Shower Notify Provider of: Fever, Increased Pain, Nausea and/or Vomiting - Discharge Plan *PRESCRIPTION DRUG MONITORING PROGRAM REVIEWED*: Not Applicable *COPY OF PRESCRIPTION DRUG MONITORING REPORT IN PATIENT TRAY: Not Applicable Home Medications: Home Meds Calcium Carb/D3/Magnesium/Zinc [Fhvhnav-Egb-Weey-Vit D] 1 tab PO DAILY 09/26/18 [History] Modafinil [Provigil] 100 mg PO DAILY 07/19/20 [History] Multivitamin 1 tab PO DAILY 07/19/20 [History] Hurley-3 Fatty Acids [Hurley-3] 1 tab PO DAILY 07/19/20 [History] Vortioxetine Hydrobromide [Trintellix] 20 mg PO DAILY 07/19/20 [History] Patient Handouts: Subdural Hematoma Referrals: Paris Wilson MD [Physician] - Micah Drake NP [Primary Care Provider] - - Discharge Summary/Plan Comment DC Time >30 min.: No - General Info Date of Service: 07/22/20 Functional Status: Reports: Pain Controlled, Tolerating Diet, Ambulating, Other (paresthesia on right posterior scalp ) - Review of Systems HEENT: Reports: No Symptoms Pulmonary: Reports: No Symptoms Cardiovascular: Reports: No Symptoms Gastrointestinal: Reports: No Symptoms Genitourinary: Reports: No Symptoms Musculoskeletal: Reports: No Symptoms Skin: Reports: No Symptoms Neurological: Reports: Dizziness, Paresthesia (right posterior scalp). Denies: Headache, Numbness, Tingling, Tremors, Trouble Speaking, Difficulty Walking, Weakness, Change in Speech, Gait Disturbance Psychiatric: Reports: No Symptoms - Patient Data Vitals - Most Recent: Last Vital Signs Temp 36.8 C 07/20/20 04:00 Pulse 65 07/20/20 04:00 Resp 18 07/20/20 04:00 BP 111/59 L 07/20/20 04:44 Pulse Ox 95 07/20/20 04:00 Weight - Most Recent: 103.238 kg I&O - Last 24 hours: Intake & Output 07/19/20 07/20/20 07/20/20 22:59 06:59 14:59 Intake Total 1295 Output Total 500 Balance 795 Lab Results - Last 24 hrs: Laboratory Results - last 24 hr 07/19/20 07/19/20 07/19/20 Range/Units 15:45 15:50 15:50 WBC 8.16 (4.0-11.0) K/uL RBC 5.09 (4.30-5.90) M/uL Hgb 15.0 (12.0-16.0) g/dL Hct 46.5 H (36.0-46.0) % MCV 91.4 (80.0-98.0) fL MCH 29.5 (27.0-32.0) pg MCHC 32.3 (31.0-37.0) g/dL RDW Std Deviation 47.7 (28.0-62.0) fl RDW Coeff of Rupal 14 (11.0-15.0) % Plt Count 257 (150-400) K/uL MPV 11.80 (7.40-12.00) fL Neut % (Auto) 52.6 (48.0-80.0) % Lymph % (Auto) 34.6 (16.0-40.0) % [place] % (Auto) 10.3 (0.0-15.0) % Eos % (Auto) 2.3 (0.0-7.0) % Baso % (Auto) 0.2 (0.0-1.5) % Neut # (Auto) 4.3 (1.4-5.7) K/uL Lymph # (Auto) 2.8 H (0.6-2.4) K/uL [place] # (Auto) 0.8 (0.0-0.8) K/uL Eos # (Auto) 0.2 (0.0-0.7) K/uL Baso # (Auto) 0.0 (0.0-0.1) K/uL Nucleated RBC % 0.0 /100WBC Nucleated RBCs # 0 K/uL Sodium 139 (136-145) mmol/L Potassium 4.2 (3.5-5.1) mmol/L Chloride 103 (98-107) mmol/L Carbon Dioxide 24.0 (21.0-32.0) mmol/L BUN 17 (7.0-18.0) mg/dL Creatinine 0.8 (0.6-1.0) mg/dL Est Cr Clr Drug Dosing 65.38 mL/min Estimated GFR (MDRD) > 60.0 ml/min Glucose 141 H (74-106) mg/dL Calcium 9.0 (8.5-10.1) mg/dL Total Bilirubin 0.8 (0.2-1.0) mg/dL AST 39 H (15-37) IU/L ALT 61 (14-63) IU/L Alkaline Phosphatase 83 (46-116) U/L Total Protein 8.2 (6.4-8.2) g/dL Albumin 4.0 (3.4-5.0) g/dL Globulin 4.2 H (2.6-4.0) g/dL Albumin/Globulin Ratio 1.0 (0.9-1.6) Urine Color YELLOW Urine Appearance CLEAR Urine pH 5.5 (5.0-8.0) Ur Specific [place] >= 1.030 (1.001-1.035) Urine Protein NEGATIVE (NEGATIVE) mg/dL Urine Glucose (UA) 100 H (NEGATIVE) mg/dL Urine Ketones TRACE H (NEGATIVE) mg/dL Urine Occult Blood NEGATIVE (NEGATIVE) Urine Nitrite NEGATIVE (NEGATIVE) Urine Bilirubin NEGATIVE (NEGATIVE) Urine Urobilinogen 0.2 (<2.0) EU/dL Ur Leukocyte Esterase NEGATIVE (NEGATIVE) SARS-CoV-2 RNA (JUNG) (NEGATIVE) 07/19/20 Range/Units 15:58 WBC (4.0-11.0) K/uL RBC (4.30-5.90) M/uL Hgb (12.0-16.0) g/dL Hct (36.0-46.0) % MCV (80.0-98.0) fL MCH (27.0-32.0) pg MCHC (31.0-37.0) g/dL RDW Std Deviation (28.0-62.0) fl RDW Coeff of Rupal (11.0-15.0) % Plt Count (150-400) K/uL MPV (7.40-12.00) fL Neut % (Auto) (48.0-80.0) % Lymph % (Auto) (16.0-40.0) % [place] % (Auto) (0.0-15.0) % Eos % (Auto) (0.0-7.0) % Baso % (Auto) (0.0-1.5) % Neut # (Auto) (1.4-5.7) K/uL Lymph # (Auto) (0.6-2.4) K/uL [place] # (Auto) (0.0-0.8) K/uL Eos # (Auto) (0.0-0.7) K/uL Baso # (Auto) (0.0-0.1) K/uL Nucleated RBC % /100WBC Nucleated RBCs # K/uL Sodium (136-145) mmol/L Potassium (3.5-5.1) mmol/L Chloride (98-107) mmol/L Carbon Dioxide (21.0-32.0) mmol/L BUN (7.0-18.0) mg/dL Creatinine (0.6-1.0) mg/dL Est Cr Clr Drug Dosing mL/min Estimated GFR (MDRD) ml/min Glucose (74-106) mg/dL Calcium (8.5-10.1) mg/dL Total Bilirubin (0.2-1.0) mg/dL AST (15-37) IU/L ALT (14-63) IU/L Alkaline Phosphatase (46-116) U/L Total Protein (6.4-8.2) g/dL Albumin (3.4-5.0) g/dL Globulin (2.6-4.0) g/dL Albumin/Globulin Ratio (0.9-1.6) Urine Color Urine Appearance Urine pH (5.0-8.0) Ur Specific [place] (1.001-1.035) Urine Protein (NEGATIVE) mg/dL Urine Glucose (UA) (NEGATIVE) mg/dL Urine Ketones (NEGATIVE) mg/dL Urine Occult Blood (NEGATIVE) Urine Nitrite (NEGATIVE) Urine Bilirubin (NEGATIVE) Urine Urobilinogen (<2.0) EU/dL Ur Leukocyte Esterase (NEGATIVE) SARS-CoV-2 RNA (JUNG) NEGATIVE (NEGATIVE) Med Orders - Current: Current Medications Acetaminophen (Tylenol) 650 mg PO Q6H PRN PRN Reason: Pain (mild 1-3) Diphenhydramine HCl (Benadryl) 25 mg PO Q4H PRN PRN Reason: Itching Sodium Chloride (Normal Saline) 1,000 mls @ 100 mls/hr IV ASDIRECTED [facility] Last Admin: 07/20/20 01:47 Dose: 100 mls/hr Documented by: Ketorolac Tromethamine (Toradol) 15 mg IVPUSH Q6H [facility] Stop: 07/20/20 10:16 Last Admin: 07/20/20 04:55 Dose: 15 mg Documented by: Ondansetron HCl (Zofran) 4 mg IVPUSH Q6H PRN PRN Reason: Nausea/Vomiting Sodium Chloride (Saline Flush) 10 ml FLUSH ASDIRECTED PRN PRN Reason: Keep Vein Open Last Admin: 07/19/20 15:51 Dose: 10 ml Documented by: Sodium Chloride (Saline Flush) 2.5 ml FLUSH ASDIRECTED PRN PRN Reason: Keep Vein Open Last Admin: 07/19/20 15:51 Dose: 2.5 ml Documented by: Sodium Chloride (Saline Flush) 10 ml FLUSH ASDIRECTED PRN PRN Reason: Keep Vein Open Sodium Chloride (Saline Flush) 2.5 ml FLUSH ASDIRECTED PRN PRN Reason: Keep Vein Open Sodium Chloride (Normal Saline) 10 ml IV ASDIRECTED PRN PRN Reason: IV Use Discontinued Medications Influenza Virus Vaccine (Pharmacy To Dose - Influenza Vaccine) 1 each IM ONETIME ONE Stop: 07/19/20 18:46 Influenza Virus Vaccine ([place] Quad [id number] Syringe) 180 mcg IM .ONCE ONE Stop: 07/20/20 09:01 Ondansetron HCl (Zofran) 4 mg IVPUSH ONETIME ONE Stop: 07/19/20 14:31 Ondansetron HCl (Zofran Odt) 4 mg PO ONETIME ONE Stop: 07/19/20 14:31 Last Admin: 07/19/20 14:49 Dose: 4 mg Documented by: - Exam Quality Assessment: Reports: Supplemental Oxygen General: Reports: Alert, Oriented, Cooperative, No Acute Distress HEENT: Reports: Pupils Equal, Pupils Reactive, EOMI, Mucous Membr. Moist/[place]. Denies: Scleral Icterus Neck: Reports: Supple, Trachea Midline Lungs: Reports: Clear to Auscultation, Normal Respiratory Effort Cardiovascular: Reports: Regular Rate, Regular Rhythm GI/Abdominal Exam: Soft, Non-Tender, No Distention, No Mass Back Exam: Reports: Normal Inspection, Full Range of Motion Extremities: Normal Inspection, Normal Range of Motion Skin: Reports: Warm, Dry, Intact Neurological: Reports: No New Focal Deficit Psy/Mental Status: Reports: Alert, Normal Affect, Normal Mood
--- NOTE | 2020-07-20 10:49 | CT ---
INDICATION: New onset right head numbness. TECHNIQUE: Head CT without intravenous contrast. Coronal and sagittal reformats. COMPARISON: Head CT 07/19/2020. FINDINGS: Unchanged asymmetric mild hyperdense thickening of the right tentorium (reference series 203, image 76). No definite intracranial hemorrhage, extra-axial collection, or evidence of acute cortical infarction. Age appropriate ventricles and sulci. No mass effect or midline shift. Orbits, cranium, paranasal sinuses, and mastoid air cells are intact. IMPRESSION: Unchanged examination with mild hyperdense thickening of the right tentorium, nonspecific though trace subdural blood products not excluded. Consider further evaluation with brain MRI, as clinically indicated. Dictated by Bud Nieto MD @ 07/20/2020 10:47:21 AM Please note that all CT scans at this facility use dose modulation, iterative reconstruction, and/or weight-based dosing when appropriate to reduce radiation dose to as low as reasonably achievable. Dictated by: Bud Nieto MD @ 07/20/2020 10:47:27 (Electronically Signed)
== END 2020-07-20 12:55 | disposition home or self-care (01) ==
LOC: MW.ED 13:33 → MW.MS 15:43
PROVIDERS: ADMIT Surgery; ATTEND Surgery
DX: S06.9X9A Unspecified intracranial injury with loss of consciousness of unspecified duration, initial encounter (principal); E11.9 Type 2 diabetes mellitus without complications; E66.9 Obesity, unspecified; G43.909 Migraine, unspecified, not intractable, without status migrainosus; J45.909 Unspecified asthma, uncomplicated; Z20.822 Contact with and (suspected) exposure to COVID-19; Z88.1 Allergy status to other antibiotic agents; Z88.8 Allergy status to other drugs, medicaments and biological substances; Z91.011 Allergy to milk products; Z91.02 Food additives allergy status; Z79.899 Other long term (current) drug therapy; Z90.49 Acquired absence of other specified parts of digestive tract; W00.0XXA Fall on same level due to ice and snow, initial encounter
CPT/HCPCS: 36415; 70450; 80053; 81003; 85025; 87635; 90682; 99285; A9270; J1885; J7030; 99284; U0002

== ENCOUNTER 2020-07-23 15:25 | Emergency (ER) | payer BC ==
--- NOTE | 2020-07-23 15:28 | EDM.PDOC ---
ED HPI GENERAL MEDICAL PROBLEM - General Stated Complaint: DIZZINESS Time Seen by Provider: 07/23/20 15:26 Source of Information: Reports: Patient History Limitations: Reports: No Limitations - History of Present Illness INITIAL COMMENTS - FREE TEXT/NARRATIVE: 60-year-old female presents for dizziness. Patient was recently admitted for observation after a fall with closed head injury. Her CT scan at that time showed possible small subdural hematoma. She was admitted overnight for observation and repeat CT in the morning was unchanged. She has follow-up next Wednesday. She is not currently on any blood thinning medications. Patient notes that last night she started to develop a posterior headache in the area that she fell. She was experiencing some dizziness associated with this, dizziness de scribed as lightheaded and presyncopal, not a room spinning sensation. No associated muscle weakness. She had continued headache and dizziness this morning which seems to be improving but are persistent throughout the day prompting her to call general surgery nurse who recommended ED visit. - Related Data Allergies Allergy/AdvReac Type Severity Reaction Status Date / Time amoxicillin [From Augmentin] Allergy Rash Verified 07/23/20 15:36 cephalexin monohydrate Allergy Rash Verified 07/23/20 15:36 [From Keflex] clavulanic acid Allergy Rash Verified 07/23/20 15:36 [From Augmentin] estrogens, conjugated Allergy Rash Verified 07/23/20 15:36 [From Premarin] Milk Containing Products Allergy Rash Verified 07/23/20 15:36 wheat germ oil Allergy Rash Uncoded 07/23/20 15:36 Home Meds: Home Meds Modafinil [Provigil] 100 mg PO DAILY 07/19/20 [History] Vortioxetine Hydrobromide [Trintellix] 20 mg PO DAILY 07/19/20 [History] Past Medical History HEENT History: Reports: Allergic Rhinitis, Other (See Below) Other HEENT History: wears glasses Cardiovascular History: Reports: Heart Murmur Respiratory History: Reports: Asthma Other Respiratory History: allergy induced asthma Gastrointestinal History: Reports: GERD Genitourinary History: Reports: None [employer] History: Reports: Musculoskeletal History: Reports: Fracture, Osteoarthritis Other Musculoskeletal History: hx fx wrist Neurological History: Reports: Migraines, Other (See Below) Other Neuro History: hormone related migraines Psychiatric History: Reports: Anxiety, Depression Endocrine/Metabolic History: Reports: Diabetes, Type II, Obesity/BMI 30+ Hematologic History: Reports: None Immunologic History: Reports: None Oncologic (Cancer) History: Reports: None Dermatologic History: Reports: None - Infectious Disease History Infectious Disease History: Reports: Chicken Pox, Measles - Past Surgical History Head Surgeries/Procedures: Reports: None HEENT Surgical History: Reports: Tonsillectomy Cardiovascular Surgical History: Reports: None GI Surgical History: Reports: Appendectomy, Cholecystectomy Female Surgical History: Reports: Breast Biopsy, Hysterectomy, Other (See Below) Other Female Surgeries/Procedures: vaginal surgery for prolapse Endocrine Surgical History: Reports: None Neurological Surgical History: Reports: Lumbar Spine Other Neurological Surgeries/Procedures: hx back surgery x3 Musculoskeletal Surgical History: Reports: Knee Replacement Other Musculoskeletal Surgeries/Procedures:: danish knee replacement, surgery to big toe-rt foot Oncologic Surgical History: Reports: Biopsy of Breast Dermatological Surgical History: Reports: None Social & Family History - Family History Family Medical History: No Pertinent Family History - Caffeine Use Caffeine Use: Reports: Coffee, Tea ED ROS GENERAL - Review of Systems Review Of Systems: Comprehensive ROS is negative, except as noted in HPI. ED EXAM, GENERAL - Physical Exam Exam: See Below Exam Limited By: No Limitations General Appearance: Alert, WD/WN, No Apparent Distress Eye Exam: Bilateral Eye: EOMI, PERRL Ears: Normal External Exam Nose: Normal Inspection Throat/Mouth: Normal Voice, No Airway Compromise Head: Atraumatic, Normocephalic Neck: Normal Inspection, Non-Tender Respiratory/Chest: No Respiratory Distress, Lungs Clear, Normal Breath Sounds, No Accessory Muscle Use Cardiovascular: Normal Peripheral Pulses, Regular Rate, Rhythm Extremities: Normal Inspection Neurological: Alert, Oriented, CN II-XII Intact, Normal Cognition, Normal Gait, No Motor/Sensory Deficits Psychiatric: Normal Affect, Normal Mood Course - Vital Signs Last Recorded V/S: Last Vital Signs Temp 98.0 F 07/23/20 15:38 Pulse 61 07/23/20 15:38 Resp 15 07/23/20 15:38 BP 117/61 07/23/20 15:38 Pulse Ox 98 07/23/20 15:38 - Orders/Labs/Meds Meds: Medications Discontinued Medications Generic Name Dose Route Start Last Admin Trade Name Freq PRN Reason Stop Dose Admin Acetaminophen 1,000 mg 07/23/20 15:47 07/23/20 15:55 Tylenol Extra Strength PO 07/23/20 15:48 1,000 mg ONETIME ONE Administration Diazepam 5 mg 07/23/20 16:42 07/23/20 16:48 Valium. PO 07/23/20 16:43 5 mg ONETIME ONE Administration Metoclopramide HCl 10 mg 07/23/20 15:47 07/23/20 15:55 Reglan PO 07/23/20 15:48 10 mg ONETIME ONE Administration - Re-Assessments/Exams Free Text/Narrative Re-Assessment/Exam: 07/23/20 15:37 We will get repeat head CT to ensure no expanding subdural hematoma. Will follow up results and disposition accordingly. 07/23/20 16:[address] shows no change from prior. Patient does note that she is feeling a little bit more lightheaded than on arrival. Spoke with Dr. Wilson who will see patient Wednesday but also requests a referral to neurology for TBI; I agree with plan. Will trial valium for dizziness and anticipate d/c with neuro f/u. Departure - Departure Time of Disposition: 16:51 Disposition: Home, Self-Care 01 Condition: Good Clinical Impression: Concussion injury of brain - Discharge Information Instructions: Traumatic Brain Injury Referrals: PCP,Not In Area [Primary Care Provider] - Additional Instructions: Your head CT did not show any evidence of an expanding subdural hematoma. You are likely experiencing postconcussive syndrome which is a type of traumatic brain injury. I spoke with Dr. Wilson who wants to follow-up with you and also recommends that you follow-up with a neurologist. Information for neurology is provided below. You can continue to take Tylenol and/or Motrin for headaches. I have also sent a prescription for Valium that can help with dizziness but can also cause you to be tired and shouldn't be taken with alcohol, while using heavy machinery or driving, or before making important decisions. There are many types of medications that can be used to treat postconcussion syndrome including antidepressants, beta-blockers, antinausea medicines, and pain medication. You can discuss these options with the neurologist. If you become dizzy to the point that you cannot stand up or walk, if your headache becomes suddenly worse or changing, or if you have any symptoms that are concerning you are always encouraged to return to the emergency department for reassessment. Postconcussion symptoms can last for a long time. It is very difficult to know how long the symptoms will last as some people get better in just a couple of days and other people experience chronic problems. [facility] [address] [place] [address], [address] [place], [place] [id number] The following information is given to patients seen in the emergency department who are being discharged to home. This information is to outline your options for follow-up care. We provide all patients seen in our emergency department with a follow-up referral. The need for follow-up, as well as the timing and circumstances, are variable depending upon the specifics of your emergency department visit. If you don't have a primary care physician on staff, we will provide you with a referral. We always advise you to contact your personal physician following an emergency department visit to inform them of the circumstance of the visit and for follow-up with them and/or the need for any referrals to a consulting specialist. The emergency department will also refer you to a specialist when appropriate. This referral assures that you have the opportunity for follow-up care with a specialist. All of these measure are taken in an effort to provide you with optimal care, which includes your follow-up. Under all circumstances we always encourage you to contact your private physician who remains a resource for coordinating your care. When calling for follow-up care, please make the office aware that this follow-up is from your recent emergency room visit. If for any reason you are refused follow-up, please contact the [facility] Emergency Department at and asked to speak to the emergency department charge nurse. Please follow up with your primary care physician. If you do not have a primary care physician, see below: [facility] [address] [place] [address] [facility] [address] [place] [address] [facility] [address] [place] [address] Sepsis Event Note (ED) - Focused Exam Vital Signs: Vital Signs Temp Pulse Resp BP Pulse Ox 07/23/20 15:38 98.0 F 61 15 117/61 98
[2020-07-23] MEDS ORDERED: Acetaminophen 500 MG Tab PO ONE (15:47)
[2020-07-23] MEDS ORDERED: Metoclopramide 10 MG Tab PO ONE (15:47)
--- NOTE | 2020-07-23 16:28 | CT ---
Indication: Fell 5 days ago, persistent dizziness and headaches, concern for subdural Technique: Nonenhanced axial CT imaging through the head. Sagittal and coronal reconstructions are provided. Comparison: CT head without contrast 07/20/2020 and 07/19/2020 Findings: There is stable slight apparent thickening of the right tentorial leaflet, potentially representing a tiny subdural hematoma. There is no evidence of subarachnoid hemorrhage or parenchymal contusion. There is normal size of the ventricles. The basal cisterns are patent. The calvarium is intact. The visualized paranasal sinuses and mastoid air cells are aerated. Impression: Stable slight apparent thickening of the right tentorial leaflet. Follow-up MRI is recommended to exclude presence of a very small subdural hematoma. Please note that all CT scans at this facility use dose modulation, iterative reconstruction, and/or weight-based dosing when appropriate to reduce radiation dose to as low as reasonably achievable. Dictated by Carolee Wallace MD @ Jul 23 2020 4:16PM Signed by Dr. Carolee Wallace @ Jul 23 2020 4:26PM
[2020-07-23] MEDS ORDERED: Diazepam 5 MG Tab PO ONE (16:42)
== END 2020-07-23 17:24 | disposition home or self-care (01) ==
LOC: MW.ED 15:25
DX: S06.0X9A Concussion with loss of consciousness of unspecified duration, initial encounter (principal); J45.909 Unspecified asthma, uncomplicated; M19.90 Unspecified osteoarthritis, unspecified site; E11.9 Type 2 diabetes mellitus without complications; E66.9 Obesity, unspecified; Z68.39 Body mass index [BMI] 39.0-39.9, adult; Z88.0 Allergy status to penicillin; Z88.1 Allergy status to other antibiotic agents; Z88.8 Allergy status to other drugs, medicaments and biological substances; Z91.011 Allergy to milk products; Z91.018 Allergy to other foods; W19.XXXA Unspecified fall, initial encounter
CPT/HCPCS: 70450; 99284; A9270; 99283